=== PATIENT | male | born 1990 | race Caucasian/White ===

== ENCOUNTER 2022-05-09 15:34 | Observation (INO) | payer MEDICAID, SELFPAY ==
[2022-05-09] VITALS (8 sets, daily range): BP systolic 102–112; BP diastolic 57–76; PULSE 71–92; RESP 14–18; TEMP 36.4–36.9; O2SAT 92–99; BMI 31.7
--- NOTE | 2022-05-09 16:36 | ED_ITS ---
Documented by User: STEVE Collins 05/12/22 07:09 HPI - Abdominal Pain General: Chief Complaint: Abdominal Pain Stated Complaint: Abd pain/appendix pain Time Seen by Provider: 05/09/22 16:27 Source: patient Mode of arrival: ambulatory Limitations: no limitations History of Present Illness: Patient is a 32-year-old male presents to ED today with a complaint of abdominal pain that began at roughly 2 AM this morning. He states he was seen at [facility] and had blood work that was reportedly normal . He states he had a CT scan that showed stones and inflammation in my appendix but was discharged home on Cipro and Flagyl. He was instructed to return to the ED if pain worsened. Patient states his pain is exponentially worse now which is what is prompting his visit currently. He has had nausea and dry heaves but no active episodes of vomiting. No fevers. He vaguely also mentions he was told he had kidney stones on his CT scan. He is not complaining of flank pain, any urinary symptoms, or hematuria. MD elicited complaint: abdominal pain Pertinent past history: none Onset (ago): hour(s) Pain Consistency: constant Location: RLQ Severity: severe Quality: sharp Radiation: none Migration to: no migration Exacerbating factors: nothing Relieving factors: nothing Associated Symptoms: Reports anorexia and nausea; Denies change in bowel habits, chills, dysuria, fever(s), hematuria and vomiting Review of Systems Const: Denies: fever(s), chills, body aches, fatigue or malaise Card: Denies: chest pain Resp: Denies: dyspnea GI: Reports: abdominal pain and nausea; Denies: vomiting or change in bowel habits : Denies: flank pain, difficulty urinating, dysuria, urinary frequency, urinary urgency, urinary hesitancy or hematuria Musc: Denies: neck pain, back pain, extremity pain or joint pain Skin/Breast: Denies: rash Neuro: Denies: headache(s), numbness in extremities, weakness in extremities, sensory changes or dizziness PFS ED PFSH: Medical History (Updated 05/11/22 @ 00:00 by RUBENS Delcid) No pertinent family history Surgical History (Updated 05/19/22 @ 09:37 by Silvia Nice RN) No pertinent past surgical history Physical Exam Const: COMMON NORMALS: no acute distress, patient oriented x3, no limitations, alert and well nourished GENERAL APPEARANCE: cooperative ORIENTATION/CONSCIOUSNESS: Yes awake, Yes oriented to person, Yes oriented to place and Yes oriented to time HENMT: COMMON NORMALS: normocephalic and atraumatic HEAD & SCALP: normal to inspection, normocephalic and atraumatic Eye: SCLERA: sclerae normal Resp: COMMON NORMALS: normal respiratory effort and clear to auscultation bilaterally AUSCULTATION: clear to auscultation bilaterally Cardio: COMMON NORMALS: regular rate and regular rhythm RATE: regular rate RHYTHM: regular rhythm GI: COMMON NORMALS: No hepatosplenomegaly present and no masses INSPECTION: Yes normal to inspection AUSCULTATION: Yes normoactive bowel sounds PALPATION: Yes Tenderness to palpation present (GI) (fairly significant abdominal pain mainly to RLQ) Details: other (positive specialized appy testing), Yes Guarding due to palpation present (GI), No Rigid due to palpation and Yes No hepatosplenomegaly present : COMMON NORMALS: Yes no CVA tenderness BLADDER/KIDNEY EXAM: Yes no CVA tenderness Back/Pelvis: COMMON NORMALS: no CVA tenderness, thoracic and lumbar spine normal to inspection, no thoracic nor lumbar tenderness and thoraco-lumbar ROM normal Extremity: COMMON NORMALS: normal to inspection GENERAL: Yes normal exam except as noted Neuro: SONDRA COMA SCALE: document GCS findings [place] coma scale eye opening: Spontaneous Sondra coma scale verbal response: Orientated [place] coma scale motor response: Obey commands [place] coma scale total score: 15 COMMON NORMALS: patient oriented x3, moves all extremities, no focal motor deficits and no sensory deficits noted SENSORIUM/ORIENTATION: Yes alert, Yes oriented to person, Yes oriented to place and Yes oriented to time Skin: COMMON NORMALS: no rashes or lesions noted GENERAL SKIN EXAM: no rashes or lesions noted Course Vital Signs: Vital signs: Vital Signs Temperature 97.8 F 05/10/22 12:52 Pulse Rate 80 05/10/22 12:52 Respiratory Rate 16 05/10/22 12:52 Blood Pressure 123/75 05/10/22 12:52 Pulse Oximetry 99 05/10/22 12:52 Oxygen Delivery Me thod 05/10/22 12:52 Oxygen Flow Rate 2 05/10/22 09:40 MDM - Abdominal Pain Medical Decision Making Will repeat labs and try and get CT report/uploaded imaging from [facility] at this time. Care transferred to Miki Gupta PA-C at shift change. Lab Data 05/09/22 16:44 05/09/22 16:44 Labs/Radiology: Radiology Impressions Abdomen/Pelvis CT 05/09/22 16:57 IMPRESSION: 1. Changes consistent with appendicitis. No evidence for appendiceal rupture. 2. Incidental/nonacute findings are listed in the report. COMMENTS: Consistent with the [employer]'s Incidental Findings Committee white paper (J Am Kathi Radiol 2018): Any incidental renal lesion less than 1 cm or classified as too small to characterize, or any incidental cystic renal lesion characterized as simple-appearing, is likely benign. No follow-up imaging is recommended for these lesions per consensus recommendations based on imaging criteria. ADDENDUM: 05/09/22 0696 THIS REPORT CONTAINS FINDINGS THAT MAY BE CRITICAL TO PATIENT CARE. The findings were verbally communicated via telephone conference with Dr. Gupta at 5:43 PM GANTRY CRANE OPERATOR on 05/09/2022. The findings were acknowledged and understood. Laboratory Results WBC 21.8 10^3/uL (4.0-10.0) H 05/09/22 16:44 RBC 4.94 10^6/uL (4.1-5.3) 05/09/22 16:44 Hgb 15.1 g/dL (11.7-16.6) 05/09/22 16:44 Hct 46.0 % (42.0-52.0) 05/09/22 16:44 MCV 93.1 fl (80-94) 05/09/22 16:44 MCH 30.6 pg (28.0-34.0) 05/09/22 16:44 MCHC 32.8 g/dL (30.0-36.0) 05/09/22 16:44 RDW 12.3 % (12.1-15.1) 05/09/22 16:44 Plt Count 386 10^3/cmm (130-400) 05/09/22 16:44 MPV 10.1 fL (7.4-10.4) 05/09/22 16:44 Neut % (Auto) 90.8 % 05/09/22 16:44 Lymph % (Auto) 3.7 % 05/09/22 16:44 Geary % (Auto) 4.7 % 05/09/22 16:44 Eos % (Auto) 0.1 % 05/09/22 16:44 Baso % (Auto) 0.2 % 05/09/22 16:44 Neut # (Auto) 19.81 10^3/uL (1.8-7.7) H 05/09/22 16:44 Lymph # (Auto) 0.8 10^3/uL (0.8-4.8) 05/09/22 16:44 Geary # (Auto) 1.0 10^3/uL (0.2-0.9) H 05/09/22 16:44 Eos # (Auto) 0.0 10^3/uL (0.0-0.8) 05/09/22 16:44 Baso # (Auto) 0.1 10^3/uL (0.0-0.1) 05/09/22 16:44 Nucleated RBC % (auto) 0 % 05/09/22 16:44 Nucleated RBCs # 0.0 /100WBC 05/09/22 16:44 Sodium 137 mmol/L (136-145) 05/09/22 16:44 Potassium 3.9 mmol/L (3.5-5.1) 05/09/22 16:44 Chloride 103 mmol/L (98-107) 05/09/22 16:44 Carbon Dioxide 21 mmol/L (22-29) L 05/09/22 16:44 Anion Gap 16.9 (5-19) 05/09/22 16:44 BUN 19 mg/dL (6-20) 05/09/22 16:44 Creatinine 0.7 mg/dL (0.7-1.2) 05/09/22 16:44 GFR Calculation 129.9 mL/min (90-130) 05/09/22 16:44 Glucose 97 mg/dL (65-115) 05/09/22 16:44 Calculated Osmolality 286 mOsm/kg (285-295) 05/09/22 16:44 Calcium 9.6 mg/dL (8.5-10.5) 05/09/22 16:44 Total Bilirubin 0.5 mg/dL (0.15-1.2) 05/09/22 16:44 AST 23 U/L (0-40) 05/09/22 16:44 ALT 15 U/L (0-41) 05/09/22 16:44 Alkaline Phosphatase 75 U/L (40-130) 05/09/22 16:44 C-Reactive Protein 15.5 mg/L (0.0-4.9) H 05/09/22 16:44 Total Protein 7.5 g/dL (6.6-8.7) 05/09/22 16:44 Albumin 4.4 g/dL (3.5-5.2) 05/09/22 16:44 Globulin 3.1 g/dL (1.3-4.6) 05/09/22 16:44 Urine Color Yellow (Yellow) 05/09/22 17:00 Urine Appearance Clear (CLEAR) 05/09/22 17:00 Urine pH 5 (5-7) 05/09/22 17:00 Ur Specific [place] 1.025 (1.005-1.030) 05/09/22 17:00 Urine Protein Neg (Negative) 05/09/22 17:00 Urine Glucose (UA) Norm (Normal) 05/09/22 17:00 Urine Ketones Negative (Negative) 05/09/22 17:00 Urine Blood Neg (Negative) 05/09/22 17:00 Urine Nitrate Negative (Negative) 05/09/22 17:00 Urine Bilirubin Neg (Negative) 05/09/22 17:00 Urine Urobilinogen Norm mg/dL (Negative) 05/09/22 17:00 Ur Leukocyte Esterase Negative (Negative) 05/09/22 17:00 Discharge Plan Discharge Patient Disposition: Admitted As Inpatient Admit Provider: Td Blood Clinical Impression: Acute appendicitis Condition: Stable Discharge Diet: Regular Discharge Activity: Increase activity as tolerated Sign Out Sign Out Data: Patient Sign Out occurred on 05/09/22 at 17:09. Patient's care was discussed, and care was transferred from to STEVE Kruse. Coding Level of Care Code ED Fret Saw Operator for Chg Fwd Documented by User: STEVE Kruse 05/09/22 22:41 HPI - Abdominal Pain General: Chief Complaint: Abdominal Pain Stated Complaint: Abd pain/appendix pain Time Seen by Provider: 05/09/22 16:27 [facility] ED PFSH: Medical History (Updated 05/11/22 @ 00:00 by RUBENS Delcid) No pertinent family history Surgical History (Updated 05/19/22 @ 09:37 by Silvia Nice RN) No pertinent past surgical history Physical Exam Neuro: SONDRA COMA SCALE: document GCS findings Sondra coma scale total score: 15 Course Vital Signs: Vital signs: Vital Signs Temperature 97.8 F 05/10/22 12:52 Pulse Rate 80 05/10/22 12:52 Respiratory Rate 16 05/10/22 12:52 Blood Pressure 123/75 05/10/22 12:52 Pulse Oximetry 99 05/10/22 12:52 Oxygen Delivery Me thod 05/10/22 12:52 Oxygen Flow Rate 2 05/10/22 09:40 MDM - Abdominal Pain Medical Decision Making Will repeat labs and try and get CT report/uploaded imaging from [facility] at this time. Care transferred to Miki Gupta PA-C at shift change. I took over patient care from Shannon Santos PA-C at shift change. Patient has a white blood cell count of 21.8, CRP 15.5 and the rest of labs are unremarkable. CT abdomen pelvis shows acute appendicitis with no abscess or rupture seen. I contacted Dr. Blood general surgeon and he recommended me admitting to hospitalist and starting him on IV Rocephin and Flagyl. Dr. Blood will take patient to surgery tomorrow morning. I contacted Dr. Hernández the hospitalist on-call and told him about patient case and he accepts admission of patient to the hospital. Lab Data I reviewed the patient's lab results. 05/09/22 16:44 05/09/22 16:44 Labs/Radiology: Radiology Impressions Abdomen/Pelvis CT 05/09/22 16:57 IMPRESSION: 1. Changes consistent with appendicitis. No evidence for appendiceal rupture. 2. Incidental/nonacute findings are listed in the report. COMMENTS: Consistent with the [employer]'s Incidental Findings Committee white paper (J Am Kathi Radiol 2018): Any incidental renal lesion less than 1 cm or classified as too small to characterize, or any incidental cystic renal lesion characterized as simple-appearing, is likely benign. No follow-up imaging is recommended for these lesions per consensus recommendations based on imaging criteria. ADDENDUM: 05/09/22 9258 THIS REPORT CONTAINS FINDINGS THAT MAY BE CRITICAL TO PATIENT CARE. The findings were verbally communicated via telephone conference with Dr. Gupta at 5:43 PM GANTRY CRANE OPERATOR on 05/09/2022. The findings were acknowledged and understood. Laboratory Results WBC 21.8 10^3/uL (4.0-10.0) H 05/09/22 16:44 RBC 4.94 10^6/uL (4.1-5.3) 05/09/22 16:44 Hgb 15.1 g/dL (11.7-16.6) 05/09/22 16:44 Hct 46.0 % (42.0-52.0) 05/09/22 16:44 MCV 93.1 fl (80-94) 05/09/22 16:44 MCH 30.6 pg (28.0-34.0) 05/09/22 16:44 MCHC 32.8 g/dL (30.0-36.0) 05/09/22 16:44 RDW 12.3 % (12.1-15.1) 05/09/22 16:44 Plt Count 386 10^3/cmm (130-400) 05/09/22 16:44 MPV 10.1 fL (7.4-10.4) 05/09/22 16:44 Neut % (Auto) 90.8 % 05/09/22 16:44 Lymph % (Auto) 3.7 % 05/09/22 16:44 Geary % (Auto) 4.7 % 05/09/22 16:44 Eos % (Auto) 0.1 % 05/09/22 16:44 Baso % (Auto) 0.2 % 05/09/22 16:44 Neut # (Auto) 19.81 10^3/uL (1.8-7.7) H 05/09/22 16:44 Lymph # (Auto) 0.8 10^3/uL (0.8-4.8) 05/09/22 16:44 Geary # (Auto) 1.0 10^3/uL (0.2-0.9) H 05/09/22 16:44 Eos # (Auto) 0.0 10^3/uL (0.0-0.8) 05/09/22 16:44 Baso # (Auto) 0.1 10^3/uL (0.0-0.1) 05/09/22 16:44 Nucleated RBC % (auto) 0 % 05/09/22 16:44 Nucleated RBCs # 0.0 /100WBC 05/09/22 16:44 Sodium 137 mmol/L (136-145) 05/09/22 16:44 Potassium 3.9 mmol/L (3.5-5.1) 05/09/22 16:44 Chloride 103 mmol/L (98-107) 05/09/22 16:44 Carbon Dioxide 21 mmol/L (22-29) L 05/09/22 16:44 Anion Gap 16.9 (5-19) 05/09/22 16:44 BUN 19 mg/dL (6-20) 05/09/22 16:44 Creatinine 0.7 mg/dL (0.7-1.2) 05/09/22 16:44 GFR Calculation 129.9 mL/min (90-130) 05/09/22 16:44 Glucose 97 mg/dL (65-115) 05/09/22 16:44 Calculated Osmolality 286 mOsm/kg (285-295) 05/09/22 16:44 Calcium 9.6 mg/dL (8.5-10.5) 05/09/22 16:44 Total Bilirubin 0.5 mg/dL (0.15-1.2) 05/09/22 16:44 AST 23 U/L (0-40) 05/09/22 16:44 ALT 15 U/L (0-41) 05/09/22 16:44 Alkaline Phosphatase 75 U/L (40-130) 05/09/22 16:44 C-Reactive Protein 15.5 mg/L (0.0-4.9) H 05/09/22 16:44 Total Protein 7.5 g/dL (6.6-8.7) 05/09/22 16:44 Albumin 4.4 g/dL (3.5-5.2) 05/09/22 16:44 Globulin 3.1 g/dL (1.3-4.6) 05/09/22 16:44 Urine Color Yellow (Yellow) 05/09/22 17:00 Urine Appearance Clear (CLEAR) 05/09/22 17:00 Urine pH 5 (5-7) 05/09/22 17:00 Ur Specific [place] 1.025 (1.005-1.030) 05/09/22 17:00 Urine Protein Neg (Negative) 05/09/22 17:00 Urine Glucose (UA) Norm (Normal) 05/09/22 17:00 Urine Ketones Negative (Negative) 05/09/22 17:00 Urine Blood Neg (Negative) 05/09/22 17:00 Urine Nitrate Negative (Negative) 05/09/22 17:00 Urine Bilirubin Neg (Negative) 05/09/22 17:00 Urine Urobilinogen Norm mg/dL (Negative) 05/09/22 17:00 Ur Leukocyte Esterase Negative (Negative) 05/09/22 17:00 Discharge Plan Discharge Patient Disposition: Admitted As Inpatient Admit Provider: Td Blood Clinical Impression: Acute appendicitis Condition: Stable Discharge Diet: Regular Discharge Activity: Increase activity as tolerated Sign Out Sign Out Data: Patient Sign Out occurred on 05/09/22 at 17:09. Patient's care was discussed, and care was transferred from to STEVE Kruse. Coding Level of Care Code ED Fret Saw Operator for Sandra Thomas Documented by User: Christian Benítez MD 05/24/22 18:27 HPI - Abdominal Pain General: Chief Complaint: Abdominal Pain Stated Complaint: Abd pain/appendix pain Time Seen by Provider: 05/09/22 16:27 PFS ED PFSH: Medical History (Updated 05/11/22 @ 00:00 by RUBENS Delcid) No pertinent family history Surgical History (Updated 05/19/22 @ 09:37 by Silvia Nice RN) No pertinent past surgical history Physical Exam Neuro: SONDRA COMA SCALE: document GCS findings Sondra coma scale total score: 15 Course Vital Signs: Vital signs: Vital Signs Temperature 97.8 F 05/10/22 12:52 Pulse Rate 80 05/10/22 12:52 Respiratory Rate 16 05/10/22 12:52 Blood Pressure 123/75 05/10/22 12:52 Pulse Oximetry 99 05/10/22 12:52 Oxygen Delivery Me thod 05/10/22 12:52 Oxygen Flow Rate 2 05/10/22 09:40 MDM - Abdominal Pain Medical Decision Making Will repeat labs and try and get [facility]. Care transferred to Miki Gupta PA-C at shift change. I took over patient care from Shannon Santos PA-C at shift change. Patient has a white blood cell count of 21.8, CRP 15.5 and the rest of labs are unremarkable. CT abdomen pelvis shows acute appendicitis with no abscess or rupture seen. I edilson ontacted Dr. Blood general surgeon and he recommended me admitting to hospitalist and starting him on IV Rocephin and Flagyl. Dr. Blood will take patient to surgery tomorrow morning. I contacted Dr. Hernández the hospitalist on-call and told him about patient case and he accepts admission of patient to the hospital. I discussed this case with STEVE Collins and STEVE Kruse. I have reviewed documentation, labs, imaging. Christian Benítez MD Emergency Medicine Lab Data 05/09/22 16:44 05/09/22 16:44 Labs/Radiology: Radiology Impressions Abdomen/Pelvis CT 05/09/22 16:57 IMPRESSION: 1. Changes consistent with appendicitis. No evidence for appendiceal rupture. 2. Incidental/nonacute findings are listed in the report. COMMENTS: Consistent with the [employer]'s Incidental Findings Committee white paper (J Am Kathi Radiol 2018): Any incidental renal lesion less than 1 cm or classified as too small to characterize, or any incidental cystic renal lesion characterized as simple-appearing, is likely benign. No follow-up imaging is recommended for these lesions per consensus recommendations based on imaging criteria. ADDENDUM: 05/09/22 1745 THIS REPORT CONTAINS FINDINGS THAT MAY BE CRITICAL TO PATIENT CARE. The findings were verbally communicated via telephone conference with Dr. Gupta at 5:43 PM GANTRY CRANE OPERATOR on 05/09/2022. The findings were acknowledged and understood. Laboratory Results WBC 21.8 10^3/uL (4.0-10.0) H 05/09/22 16:44 RBC 4.94 10^6/uL (4.1-5.3) 05/09/22 16:44 Hgb 15.1 g/dL (11.7-16.6) 05/09/22 16:44 Hct 46.0 % (42.0-52.0) 05/09/22 16:44 MCV 93.1 fl (80-94) 05/09/22 16:44 MCH 30.6 pg (28.0-34.0) 05/09/22 16:44 MCHC 32.8 g/dL (30.0-36.0) 05/09/22 16:44 RDW 12.3 % (12.1-15.1) 05/09/22 16:44 Plt Count 386 10^3/cmm (130-400) 05/09/22 16:44 MPV 10.1 fL (7.4-10.4) 05/09/22 16:44 Neut % (Auto) 90.8 % 05/09/22 16:44 Lymph % (Auto) 3.7 % 05/09/22 16:44 Geary % (Auto) 4.7 % 05/09/22 16:44 Eos % (Auto) 0.1 % 05/09/22 16:44 Baso % (Auto) 0.2 % 05/09/22 16:44 Neut # (Auto) 19.81 10^3/uL (1.8-7.7) H 05/09/22 16:44 Lymph # (Auto) 0.8 10^3/uL (0.8-4.8) 05/09/22 16:44 Geary # (Auto) 1.0 10^3/uL (0.2-0.9) H 05/09/22 16:44 Eos # (Auto) 0.0 10^3/uL (0.0-0.8) 05/09/22 16:44 Baso # (Auto) 0.1 10^3/uL (0.0-0.1) 05/09/22 16:44 Nucleated RBC % (auto) 0 % 05/09/22 16:44 Nucleated RBCs # 0.0 /100WBC 05/09/22 16:44 Sodium 137 mmol/L (136-145) 05/09/22 16:44 Potassium 3.9 mmol/L (3.5-5.1) 05/09/22 16:44 Chloride 103 mmol/L (98-107) 05/09/22 16:44 Carbon Dioxide 21 mmol/L (22-29) L 05/09/22 16:44 Anion Gap 16.9 (5-19) 05/09/22 16:44 BUN 19 mg/dL (6-20) 05/09/22 16:44 Creatinine 0.7 mg/dL (0.7-1.2) 05/09/22 16:44 GFR Calculation 129.9 mL/min (90-130) 05/09/22 16:44 Glucose 97 mg/dL (65-115) 05/09/22 16:44 Calculated Osmolality 286 mOsm/kg (285-295) 05/09/22 16:44 Calcium 9.6 mg/dL (8.5-10.5) 05/09/22 16:44 Total Bilirubin 0.5 mg/dL (0.15-1.2) 05/09/22 16:44 AST 23 U/L (0-40) 05/09/22 16:44 ALT 15 U/L (0-41) 05/09/22 16:44 Alkaline Phosphatase 75 U/L (40-130) 05/09/22 16:44 C-Reactive Protein 15.5 mg/L (0.0-4.9) H 05/09/22 16:44 Total Protein 7.5 g/dL (6.6-8.7) 05/09/22 16:44 Albumin 4.4 g/dL (3.5-5.2) 05/09/22 16:44 Globulin 3.1 g/dL (1.3-4.6) 05/09/22 16:44 Urine Color Yellow (Yellow) 05/09/22 17:00 Urine Appearance Clear (CLEAR) 05/09/22 17:00 Urine pH 5 (5-7) 05/09/22 17:00 Ur Specific [place] 1.025 (1.005-1.030) 05/09/22 17:00 Urine Protein Neg (Negative) 05/09/22 17:00 Urine Glucose (UA) Norm (Normal) 05/09/22 17:00 Urine Ketones Negative (Negative) 05/09/22 17:00 Urine Blood Neg (Negative) 05/09/22 17:00 Urine Nitrate Negative (Negative) 05/09/22 17:00 Urine Bilirubin Neg (Negative) 05/09/22 17:00 Urine Urobilinogen Norm mg/dL (Negative) 05/09/22 17:00 Ur Leukocyte Esterase Negative (Negative) 05/09/22 17:00 Discharge Plan Discharge Patient Disposition: Admitted As Inpatient Admit Provider: Td Blood Clinical Impression: Acute appendicitis Condition: Stable Discharge Diet: Regular Discharge Activity: Increase activity as tolerated Sign Out Sign Out Data: Patient Sign Out occurred on 05/09/22 at 17:09. Patient's care was discussed, and care was transferred from to STEVE Kruse. Coding Level of Care Code ED Fret Saw Operator for Sandra Thomas
[2022-05-09] MEDS: morphine 4 mg/mL SDV 1 mL IVP ×2 (16:47→21:39)
[2022-05-09] MEDS: ondansetron 2 mg/ML SDV 2 mL 4 MG IVP (16:47)
[2022-05-09 16:51] LABS: Basophils # 0.1 10^3/uL (0.0-0.1); Basophils % 0.2 %; Eosinophils % 0.1 %; Hemoglobin 15.1 g/dL (11.7-16.6); Lymphocytes # 0.8 10^3/uL (0.8-4.8); Lymphocytes % 3.7 %; Mean Corpuscular HGB Conc 32.8 g/dL (30.0-36.0); Mean Corpuscular Hemoglobin 30.6 pg (28.0-34.0); Mean Corpuscular Volume 93.1 fl (80-94); Mean Platelet Volume 10.1 fL (7.4-10.4); Monocytes % 4.7 %; Neutrophils # 19.81 10^3/uL (1.8-7.7); Neutrophils % 90.8 %; Nucleated Red Blood Cells % 0 %; Platelet Count 386 10^3/cmm (130-400); Red Blood Count 4.94 10^6/uL (4.1-5.3); Red Cell Distribution Width 12.3 % (12.1-15.1); White Blood Count 21.8 10^3/uL (4.0-10.0)
--- NOTE | 2022-05-09 16:57 | CTR_ITS ---
PROCEDURE INFORMATION: Exam: CT Abdomen And Pelvis With Contrast Exam date and time: 05/09/2022 5:08 PM Age: 32 years old Clinical indication: Abdominal pain; Other: Rlq; Additional info: Rlq pain, leukocytosis, reportedly had CT scan earlier today that showed stones and TECHNIQUE: Imaging protocol: Computed tomography of the abdomen and pelvis with contrast. Sagittal and coronal reformatted images were created and reviewed. Radiation optimization: All CT scans at this facility use at least one of these dose optimization techniques: automated exposure control; mA and/or kV adjustment per patient size (includes targeted exams where dose is matched to clinical indication); or iterative reconstruction. Contrast material: OMNI 350; Contrast volume: 100 ml; Contrast route: INTRAVENOUS (IV); REPORTING DATA: Count of CT and Cardiac NM exams in prior 12 months: This patient has received 0 known CTs and 0 known cardiac nuclear medicine studies in the 12 months prior to the current study. COMPARISON: No relevant prior studies available. RADIATION DOSE METRICS: Total DLP (mGy-cm): 993.63 FINDINGS: Lungs: Dependent atelectasis in the visualized lungs. Pleural spaces: No pleural effusion. Heart: Visualized cardiac chambers are unremarkable. Liver: The liver is unremarkable. Gallbladder and bile ducts: Increased density in the gallbladder. Per report, the patient had a prior CT scan earlier on 05/09/2022, this is likely due to vicarious excretion of contrast. No gallbladder wall thickening. No biliary ductal dilatation. Pancreas: The pancreas is unremarkable. No pancreatic ductal dilatation. Spleen: Calcified granuloma in the spleen. Adrenal glands: The right and left adrenal glands are unremarkable. Kidneys and ureters: Subcentimeter hypodense foci in both right and left kidneys that are too small to characterize, however likely represent small cysts. The right and left ureters are unremarkable. Stomach and bowel: No acute abnormality in the stomach. No acute abnormality in the small bowel. No acute abnormality in the colon. Appendix: There is no evidence for an appendicolith. The appendix is dilated, measuring 1.3 cm in diameter (series 6, image 52). Thickening and enhancement of the wall of the appendix. Small amount of periappendiceal fluid. Mild periappendiceal inflammation. Intraperitoneal space: No free intraperitoneal air. No ascites. No loculated fluid collections to suggest an abscess. Vasculature: No evidence for aortic aneurysm or aortic dissection. Hepatic veins, portal veins, splenic vein, and SMV are patent. Lymph nodes: No lymphadenopathy. Urinary bladder: The bladder is incompletely filled, which can limit evaluation. No focal abnormality in the bladder however. Reproductive: Unremarkable as visualized. Bones/joints: No acute fracture. Soft tissues: The extra-abdominal soft tissues are unremarkable. CT/CT abdomen pelvis w con* [id number] IMPRESSION: 1. Changes consistent with appendicitis. No evidence for appendiceal rupture. 2. Incidental/nonacute findings are listed in the report. COMMENTS: Consistent with the [employer]'s Incidental Findings Committee white paper (J Am Kathi Radiol 2018): Any incidental renal lesion less than 1 cm or classified as too small to characterize, or any incidental cystic renal lesion characterized as simple-appearing, is likely benign. No follow-up imaging is recommended for these lesions per consensus recommendations based on imaging criteria.
[2022-05-09] MEDS: iohexol 350 mg/mL 500 mL Btl (per mL) IV (17:05)
[2022-05-09 17:16] LABS: Alanine Aminotransferase 15 U/L (0-41); Albumin Level 4.4 g/dL (3.5-5.2); Alkaline Phosphatase 75 U/L (40-130); Blood Urea Nitrogen 19 mg/dL (6-20); C Reactive Protein 15.5 mg/L (0.0-4.9); Calcium 9.6 mg/dL (8.5-10.5); Carbon Dioxide 21 mmol/L (22-29); Chloride 103 mmol/L (98-107); Globulin 3.1 g/dL (1.3-4.6); Glomerular Filtration Rate 129.9 mL/min (90-130); Glucose 97 mg/dL (65-115); Osmolality Calculated 286 mOsm/kg (285-295); Sodium 137 mmol/L (136-145); Total Bilirubin 0.5 mg/dL (0.15-1.2); Total Protein 7.5 g/dL (6.6-8.7)
[2022-05-09 17:18] LABS: Anion Gap 16.9 (5-19); Aspartate Amino Transferase 23 U/L (0-40); Potassium 3.9 mmol/L (3.5-5.1)
[2022-05-09 17:39] LABS: Add Urine Microscopic? NO; Charge for UA Resulting for Rev
[2022-05-09 17:54] LABS: Bilirubin Urine Neg (Negative); Blood Urine Neg (Negative); Glucose Urine UA Norm (Normal); Ketones Urine Negative (Negative); Leukocyte Esterase Urine Negative (Negative); Nitrate Urine Negative (Negative); Protein Urine Neg (Negative); Specific Gravity, Urine 1.025 (1.005-1.030); Urine Appearance Clear (CLEAR); Urine Color Yellow (Yellow); Urobilinogen Urine Norm (Negative); pH Urine 5 (5-7)
[2022-05-09] MEDS: HYDROmorphone 1 mg/mL INJ 1 mL IVP (17:59)
[2022-05-09] MEDS: cefTRIAXone 2,000 MG in sodium chloride 0.9% (plus) 50 ML 100 MG IV (18:15)
[2022-05-09] MEDS: sodium chloride 0.9% 500 ML 999 ML IV (18:16)
--- NOTE | 2022-05-09 18:34 | PM.HP ---
Providers/Chief Complaint Chief Complaint: Abd pain/appendix pain History of Present Illness Raza Gay is a 32 year old male with no previous medical history who presented to the ER with right lower quadrant pain, nausea, vomiting. He reports symptoms started around 230 this morning. Complained of abdominal pain and felt the need to have a bowel movement. States that he was able to move his bowels, however the pain did not improve. Pain initially was centered around his mid abdomen but migrated to his right lower quadrant. He was seen at [facility] ER earlier today, and was discharged. He reports during that stay he was provided with some morphine which did help his pain, but his abdominal pain did return when the morphine wore off. At that time he presented to the ER in [place]. In the ER he was noted to have a white count of 21.8 as well as a CRP of 15.5. CT was performed and showed acute appendicitis without rupture or abscess. General surgery was consulted, and requested patient started on Rocephin and IV fluids. They asked for hospitalist to admit the patient and they would arrange for surgical intervention tomorrow. He has no other medical problems. He is taking no medications. He does have an allergy to amoxicillin. States that he does smoke half to a pack a day. Denies any alcohol or illicit drug use. Review of Systems General: Reports: 10 or more systems reviewed and unremarkable except in HPI and below Const: Reports: fever(s), chills and change in appetite ENMT: Denies: throat pain Card: Denies: chest pain or palpitations Resp: Denies: dyspnea GI: Reports: abdominal pain, nausea and vomiting : Denies: flank pain Musc: Denies: neck pain Skin/Breast: Denies: rash Neuro: Denies: headache(s) Medications/Allergies Allergies Allergy/AdvReac Type Severity Reaction Status Date / Time amoxicillin Allergy ALGY-Swell Verified 05/09/22 16:47 Lip/Tongue/Throat PFSH Acute PFSH: Medical History No pertinent family history Surgical History No pertinent past surgical history Vitals/I&O/Wt Last Vital Signs Temp 98.0 F 05/09/22 15:46 Pulse 73 05/09/22 17:30 Resp 14 05/09/22 17:59 BP 107/63 05/09/22 17:30 Pulse Ox 99 05/09/22 17:30 O2 Del Method 05/09/22 17:30 Weight last 48 hrs Weight 209 lb Physical Exam Narrative: General: Cooperative patient in no apparent distress. Well developed. HEENT: Normocephalic, Atraumatic. External ears normal. Nasal passages patent without drainage. MMM. Heart: RRR. Resp: LCTA. No respiratory distress, no use of accessory muscles. Abd: Soft, Non-distended. Right lower quadrant tenderness, point tenderness at McBurney's. Extremities: No edema. Skin: No rash or lesions on exposed areas. Data 05/09/22 16:44 05/09/22 16:44 A&P Assessment and plan (1) Acute appendicitis: 32-year-old male with no prior medical history admitted for acute appendicitis. Admit to [facility] for inpatient monitoring. WBC count to 21, with Neutrophilia. CRP elevated to 15.5. Remainder of the labs were unremarkable. Vitals stable. CT demonstrates Acute appendicitis. General surgery is consulted. Plan to take to the OR tomorrow morning. Rocephin,Flagyl ordered per surgery. He has received one dose each while in the ER. Continue IVF's with LR @ 100ml/hr. Recheck labs in am prior to surgery. Morphine for pain control. NPO after midnight. May have sips and chips until that time if able to tolerate. Zofran for nausea. Code Status: Full IVF: LR @ 100 DVT PPx: Famotidine GI PPx: SCD's ABx: Rocephin, Flagyl Diet: NPO Disposition: Admit to [facility] Discharge plan: Home when stable. Qualifiers: Acute appendicitis type: with localized peritonitis Appendicitis abscess presence: without abscess Appendicitis gangrene presence: without gangrene Appendicitis perforation presence: without perforation Qualified Code(s): K35.30 - Acute appendicitis with localized peritonitis, without perforation or gangrene Attestations Medical Necessity Statement*: Patient will need inpatient monitoring for acute appendicitis and plan for surgical intervention Coding Level of Care Code Acute Code for Chg Fwd Straight Forward/Low MDM includes number and complexity of problems actively addressed during encounter, amount and/or complexity of data reviewed/ordered and described risk of complication, morbidity or mortality of management as documented Diagnoses Acute appendicitis K35.30 Acute appendicitis type: with localized peritonitis Appendicitis abscess presence: without abscess Appendicitis gangrene presence: without gangrene Appendicitis perforation presence: without perforation
--- NOTE | 2022-05-09 18:54 | PM.HP ---
Providers/Chief Complaint Admitting Physician: Jeremi Chief Complaint: Abd pain/appendix pain History of Present Illness Raza Gay is a 32 year old male who has had approximately about 12 to 16 hours worth of abdominal pain. The patient had some nausea with vomiting. The patient started in the epigastric region. The patient thought that he was constipated. He then thought that throwing up would help. Neither of these maneuvers helped. The patient went to an urgent care center where the patient was given pain medicine and sent home. I think the patient was given a dose of antibiotics. This helped for several hours and then the patient presented here for further care. The patient underwent a CT scan of the abdomen pelvis which was consistent with acute appendicitis. The appendix does not appear to be ruptured. There is no fluid around the appendix. There is no air around the appendix. The patient is currently healthy. Patient does not take any medications on a regular basis. The patient's had no previous abdominal operations. Review of Systems General: Reports: 10 or more systems reviewed and unremarkable except in HPI and below Medications/Allergies Allergies Allergy/AdvReac Type Severity Reaction Status Date / Time amoxicillin Allergy ALGY-Swell Verified 05/09/22 16:47 Lip/Tongue/Throat PFSH Acute PFSH: Medical History No pertinent family history Surgical History No pertinent past surgical history Vitals/I&O/Wt Last Vital Signs Temp 98.0 F 05/09/22 15:46 Pulse 73 05/09/22 17:30 Resp 14 05/09/22 17:59 BP 107/63 05/09/22 17:30 Pulse Ox 99 05/09/22 17:30 O2 Del Method 05/09/22 17:30 Weight last 48 hrs Weight 209 lb Physical Exam Narrative: General: Patient is in no acute distress. There are several cans of soda at the bedside. HEENT: No cephalic atraumatic, pupils equal round reactive to light, extraocular muscles are intact. There is no palpable facial fractures. All nasal passages are clear Neck: Free range of motion and nontender. There is no thyromegaly. There are no adenopathy Chest: Is nontender to palpation. Lungs: Clear to auscultation percussion Heart: Is regular rate and rhythm without murmurs. There is no S3 or S4. There is no rubs clicks or JVD noted. Abdomen: Soft, right lower quadrant tenderness with rebound. The patient has normal active bowel sounds. There is no hepatosplenomegaly. There is no hernia sac and appreciate Extremities: There is no obvious deformities or point tenderness suggestive of fracture. There is no clubbing cyanosis or edema Neurologic: Patient awake, alert, oriented x3, patient moves all 4 extremities without difficulty. The patient sensations intact to light touch throughout. Data 05/09/22 16:44 05/09/22 16:44 Attestation for Other Data: I personally reviewed and interpreted the following: (I reviewed all the patient's labs as well as the CT scan of the abdomen and pelvis) A&P Assessment and plan (1) Acute appendicitis: We will admit the patient to the surgery service. We will start the patient on ceftriaxone and Flagyl. The patient is allergic to penicillins. We will make sure the patient is hydrated. The patient should be n.p.o. after midnight. The risk and benefits of laparoscopic appendectomy and the plan explained to the patient. The patient seems understand these risk and benefits and would like to proceed. I have already had the patient's sign a consent form. We will plan on operative intervention first thing in the morning. Medical decision making: High Qualifiers: Acute appendicitis type: with localized peritonitis Appendicitis abscess presence: without abscess Appendicitis gangrene presence: without gangrene Appendicitis perforation presence: without perforation Qualified Code(s): K35.30 - Acute appendicitis with localized peritonitis, without perforation or gangrene Attestations Medical Necessity Statement*: Plan for operative intervention Coding Level of Care Code 22698 Diagnoses Acute appendicitis K35.30 Acute appendicitis type: with localized peritonitis Appendicitis abscess presence: without abscess Appendicitis gangrene presence: without gangrene Appendicitis perforation presence: without perforation
--- NOTE | 2022-05-09 19:20 | PC.NURSE ---
Report from Mitra, RN. Pt resting quietly. Watching TV. No needs at this time.
[2022-05-09] MEDS: metroNIDAZOLE IV 500 MG/100 ML PREMIX 100 MG IV (19:31)
[2022-05-09] MEDS: morphine 4 mg/mL SDV 1 mL 2 MG IVP (19:51)
[2022-05-09] MEDS: acetaminophen 325 mg Tablet 650 MG PO (21:27)
[2022-05-09] MEDS: ibuprofen 200 mg Tablet 600 MG PO (21:28)
[2022-05-09] MEDS: D5-NS 0.45% + KCL 20 mEq 20 MEQ/1,000 ML BAG 75 MEQ IV (21:29)
[2022-05-09] MEDS: famotidine 20 mg/2 mL INJ IVP (21:35)
[2022-05-10] VITALS (18 sets, daily range): BP systolic 105–145; BP diastolic 50–83; PULSE 61–99; RESP 14–18; TEMP 36.2–36.9; O2SAT 94–99
[2022-05-10] MEDS: morphine 4 mg/mL SDV 1 mL IVP ×4 (02:08→06:46)
[2022-05-10] MEDS: ondansetron 2 mg/ML SDV 2 mL 4 MG IVP (04:29)
[2022-05-10 05:32] LABS: Basophils % 0.4 %; Eosinophils # 0.2 10^3/uL (0.0-0.8); Eosinophils % 1.9 %; Hematocrit 39.8 % (42.0-52.0); Hemoglobin 13.7 g/dL (11.7-16.6); Lymphocytes # 2.3 10^3/uL (0.8-4.8); Lymphocytes % 22.3 %; Mean Corpuscular HGB Conc 34.4 g/dL (30.0-36.0); Mean Corpuscular Hemoglobin 31.1 pg (28.0-34.0); Mean Corpuscular Volume 90.2 fl (80-94); Mean Platelet Volume 9.8 fL (7.4-10.4); Monocytes # 0.7 10^3/uL (0.2-0.9); Monocytes % 7.1 %; Neutrophils # 6.88 10^3/uL (1.8-7.7); Nucleated Red Blood Cells % 0 %; Platelet Count 348 10^3/cmm (130-400); Red Blood Count 4.41 10^6/uL (4.1-5.3); Red Cell Distribution Width 12.1 % (12.1-15.1); White Blood Count 10.1 10^3/uL (4.0-10.0)
[2022-05-10 05:57] LABS: Alanine Aminotransferase 12 U/L (0-41); Alkaline Phosphatase 65 U/L (40-130); Anion Gap 11.3 (5-19); Aspartate Amino Transferase 14 U/L (0-40); Blood Urea Nitrogen 16 mg/dL (6-20); Calcium 8.8 mg/dL (8.5-10.5); Carbon Dioxide 26 mmol/L (22-29); Chloride 107 mmol/L (98-107); Creatinine Clr Calc Pharmacy 146.6799; Globulin 2.6 g/dL (1.3-4.6); Glomerular Filtration Rate 111.3 mL/min (90-130); Glucose 108 mg/dL (65-115); Osmolality Calculated 292 mOsm/kg (285-295); Potassium 4.3 mmol/L (3.5-5.1); Sodium 140 mmol/L (136-145); Total Bilirubin 0.5 mg/dL (0.15-1.2); Total Protein 6.6 g/dL (6.6-8.7)
--- NOTE | 2022-05-10 07:46 | ANES.PREANE2 ---
Pre-Anesthetic Assessment Height/Weight: Height 1.73 m Weight 94.801 kg Temp Pulse Resp BP Pulse Ox O2 Del Method 98.0 F 61 18 126/78 96 05/10/22 07:34 05/10/22 07:34 05/10/22 07:34 05/10/22 07:34 05/10/22 07:34 05/10/22 07:34 Preop Diagnosis: acute appy Operation Date: 05/10/22 08:20 Proposed Procedures p Laparoscopic Appendectomy(Not Applicable) - Td Blood MD Familial anesthetic complications: None Was Beta Tracy taken within 24 hours: N/A Was Clonidine taken within 24 hours: N/A Last intake: Intake Last Liquid Date 05/09/22 Last Solid Date 05/09/22 Last Solid Time 18:30 Social Tobacco and No alcohol Exam alert, oriented x 3, clear to auscultation bilaterally and regular rate & rhythm Airway Mallampati: Class II Dentition: chipped and other (Very poor dentition ( Rotten )) Comments: Comments: back R upper broken with sharp edges, caution if using scissoring technique for mouth opening Anesthetic Plan ASA status: 1 Anesthesia: General Risk of > 500 ml blood loss (7ml/kg in children): No Medications/Allergies Allergies Allergy/AdvReac Type Severity Reaction Status Date / Time amoxicillin Allergy ALGY-Swell Verified 05/09/22 16:47 Lip/Tongue/Throat Current Medications Generic Name Dose Route Start Last Admin Trade Name Freq PRN Reason Stop Dose Admin Acetaminophen 650 mg 05/09/22 18:45 05/10/22 04:23 Acetaminophen 325 Mg Tablet PO Not Given Q6H DAVID Famotidine 20 mg 05/09/22 18:45 05/09/22 21:35 Famotidine 20 Mg/2 Ml Inj IVP 20 mg Q12H DAVID Administration Potassium Chloride/Dextrose/Sod Cl 20 meq in 1,000 mls @ 75 mls/hr 05/09/22 18:45 05/09/22 21:29 D5-Ns 0.45% + Kcl 20 Meq IV 75 mls/hr .[id number] DAVID Administration Ibuprofen 600 mg 05/09/22 18:45 05/10/22 04:23 Ibuprofen 200 Mg Tablet PO Not Given Q6H DAVID Morphine Sulfate 4 mg 05/09/22 21:09 05/10/22 06:46 Morphine 4 Mg/Ml Sdv 1 Ml IVP 4 mg Q2H PRN Administration SEVERE PAIN Ondansetron HCl 4 mg 05/09/22 18:44 05/10/22 04:29 Ondansetron 2 Mg/Ml Sdv 2 Ml IVP 4 mg Q8H PRN Administration vomiting, or N/V if npo PFSH Anesthesia Medical History No pertinent family history Surgical History No pertinent past surgical history Data Anesthesia 05/10/22 05:10 05/10/22 05:10 Short CBC 05/09/22 05/10/22 Range/Units 16:44 05:10 WBC 21.8 H 10.1 H (4.0-10.0) 10^3/uL Hgb 15.1 13.7 (11.7-16.6) g/dL Hct 46.0 39.8 L (42.0-52.0) % MCV 93.1 90.2 (80-94) fl Plt Count 386 348 (130-400) 10^3/cmm Neut % (Auto) 90.8 68.0 % Neut # (Auto) 19.81 H 6.88 (1.8-7.7) 10^3/uL BMP 05/09/22 05/10/22 16:44 05:10 Sodium 137 140 Potassium 3.9 4.3 Chloride 103 107 Carbon Dioxide 21 L 26 BUN 19 16 Creatinine 0.7 0.8 Glucose 97 108 Calcium 9.6 8.8 Liver Function 05/09/22 05/10/22 Range/Units 16:44 05:10 Total Bilirubin 0.5 0.5 (0.15-1.2) mg/dL AST 23 14 (0-40) U/L ALT 15 12 (0-41) U/L Alkaline Phosphatase 75 65 (40-130) U/L Albumin 4.4 4.0 (3.5-5.2) g/dL Urine 05/09/22 Range/Units 17:00 Urine Color Yellow (Yellow) Urine Appearance Clear (CLEAR) Urine pH 5 (5-7) Ur Specific [place] 1.025 (1.005-1.030) Urine Protein Neg (Negative) Urine Glucose (UA) Norm (Normal) Urine Ketones Negative (Negative) Urine Nitrate Negative (Negative) Urine Bilirubin Neg (Negative) Ur Leukocyte Esterase Negative (Negative) Coags 05/09/22 16:44 C-Reactive Protein 15.5 H Cardiac Studies: No Data to Display
--- NOTE | 2022-05-10 08:41 | SUR.OPER ---
No antibiotic or local needed per dr. castro at 0801. HD
--- NOTE | 2022-05-10 08:56 | P.OP_ITS ---
Operative Report Date of procedure: May 10, 2022 Pre-op diagnosis: Acute appendicitis Post-op diagnosis: same Procedure done: Laparoscopic appendectomy Specimens removed/disposition: Appendix Surgeon: Td Blood Anesthesia: General Estimated blood loss: 5 cc Complications: None noted Findings: Acute, inflamed appendix. Nonruptured. Appendiceal stump was flush with the cecum. Condition: stable Disposition: PACU Brief History: This is a 32-year-old gentleman who presented with abdominal pain. The patient originally presented to an urgent care center. The patient was given antibiotics and sent home. The patient's pain returned. The patient presented to our emergency room where he underwent a CT scan of the abdomen and pelvis. This was consistent with acute appendicitis. The patient is admitted and started on antibiotics. The risk and benefits of laparoscopic appendectomy were explained to the patient. Patient seemed understand these risk and benefits and would like to proceed. Procedure: Procedure in Detail: The patient was brought to the operative room placed in supine position. After adequate general endotracheal anesthesia, the patient's abdomen was prepped and draped in usual sterile fashion. Following this a timeout was performed. The patient's identifiers as well as the goals procedure were discussed. Everyone in the room agreed. A penetrating towel clip was placed on each side of the umbilicus and lifted towards the ceiling. Now, a curvilinear incision was made at the superior aspect of the umbilicus with a skin knife. Hemostat was used to dissect down to the fascia. Then a 12 mm trocar was placed through this wound into the abdomen without difficulty. The abdomen was insufflated to 15 mmHg. The 10 mm scope was placed through this trocar. There appeared to be no evidence of intra- abdominal injury from the trocar. Now 2 standard trocars were placed a 12 mm in the left lower quadrant and a 5 mm just above the symphysis pubis. These were placed under direct vision. The patient was now placed in Trendelenburg and rolled with his left side down right side up in order for the bowels the following for the right lower quadrant. With a Formoso I was able to grasp the cecum. And then with Luly I was able to create a window in the mesoappendix. Now a HILLARY stapler was placed through this window across the base of the appendix and fired. This amputated the appendix. This was done with a blue load. Now a HILLARY stapler with a white load was used to transect the mesoappendix. The appendix was now placed in an Endobag. Suction fast food shift supervisor was used to suction out small amount of blood from the right lower quadrant. The appendiceal stump was visualized. It was flush with the cecum. There was no bleeding from the mesoappendix. A 5 mm port was removed. The Endobag was pulled out through the left lower quadrant incision along with the trocar. This came out without difficulty. There was no bleeding from the site. Now the abdomen is allowed to deflate. The final umbilical port was removed. 0 Vicryl was used in an interrupted fashion to reapproximate the fascia at both the umbilical and the left lower quadrant ports. Now using 4-0 Monocryl in a subcuticular fashion the skin was reapproximated in all 3 incisions. Dermabond was applied. The patient was now allowed to awaken and taken recovery room in stable condition. I spoke with the patient's father at length. Explained the above findings. All questions were addressed.
[2022-05-10] MEDS: fentaNYL 50 mcg/mL INJ 2mL IVP (09:06)
[2022-05-10] MEDS: meperidine 50 mg/mL INJ 12.5 MG IVP (09:10)
--- NOTE | 2022-05-10 11:19 | PC.PHAR ---
pt states he was taking an antibiotic but is unsure what he was taking. Patient fills at [facility] and is closed on Saturdays
[2022-05-10] MEDS: ibuprofen 200 mg Tablet 600 MG PO (11:29)
[2022-05-10] MEDS: metroNIDAZOLE IV 500 MG/100 ML PREMIX 100 MG IV (11:30)
[2022-05-10] MEDS: acetaminophen 325 mg Tablet 650 MG PO (11:30)
[2022-05-10] MEDS: famotidine 20 mg/2 mL INJ IVP (11:31)
[2022-05-10] MEDS: D5-NS 0.45% + KCL 20 mEq 20 MEQ/1,000 ML BAG 75 MEQ IV (11:32)
--- NOTE | 2022-05-10 13:26 | PM.PN ---
Subjective Subjective: Patient is just back from recovery room. Nursing reports no problems during the operation. He is still a little out of it, but says that his pain is controlled at this time. Medications: Reviewed: Yes Vitals/I&O/Wt Last Vital Signs Temp 97.8 F 05/10/22 12:52 Pulse 80 05/10/22 12:52 Resp 16 05/10/22 12:52 BP 123/75 05/10/22 12:52 Pulse Ox 99 05/10/22 12:52 O2 Del Method 05/10/22 12:52 O2 Flow Rate 2 05/10/22 09:40 05/09/22 05/10/22 05/10/22 22:59 06:59 14:59 Intake Total 890 / 890 1150 / 1150 Output Total 200 / 200 5 / 5 Balance 690 / 690 1145 / 1145 Weight last 48 hrs Weight 209 lb Physical Exam Narrative: General: Cooperative patient in no apparent distress. Well developed. HEENT: Normocephalic, Atraumatic. External ears normal. Nasal passages patent without drainage. MMM. Heart: RRR. Resp: LCTA. No respiratory distress, no use of accessory muscles. Abd: Soft, Non-distended. Extremities: No edema. Skin: No rash or lesions on exposed areas. Data 05/10/22 05:10 05/10/22 05:10 A&P Assessment and plan (1) Acute appendicitis: 32-year-old male with no prior medical history admitted for acute appendicitis. Continue close inpatient monitoring. Patient is postop from surgery today. Vitals are currently stable. Recheck labs in am. Morphine for pain control. Zofran for nausea. Anticipate discharge in the next 24 to 48 hours. Code Status: Full DVT PPx: Famotidine GI PPx: SCD's ABx: Rocephin, Flagyl Diet: Regular Disposition: Med/Surg Discharge plan: Home when appropriate. Qualifiers: Acute appendicitis type: with localized peritonitis Appendicitis abscess presence: without abscess Appendicitis gangrene presence: without gangrene Appendicitis perforation presence: without perforation Qualified Code(s): K35.30 - Acute appendicitis with localized peritonitis, without perforation or gangrene Attestations Medical Necessity Statement*: Patient will need inpatient monitoring for pain control, post-op observation. Anticipate D/C in 24-48hrs. Coding Level of Care Code Acute Code for Chg Fwd Straight Forward/Low MDM includes number and complexity of problems actively addressed during encounter, amount and/or complexity of data reviewed/ordered and described risk of complication, morbidity or mortality of management as documented Diagnoses Acute appendicitis K35.30 Acute appendicitis type: with localized peritonitis Appendicitis abscess presence: without abscess Appendicitis gangrene presence: without gangrene Appendicitis perforation presence: without perforation
--- NOTE | 2022-05-10 14:00 | ANE.PACU2 ---
Inpatient post-anesthesia follow up: Airway intact: Yes Vital signs: Temperature 97.8 F Pulse Rate 80 Respiratory Rate 16 Blood Pressure 123/75 Pulse Oximetry 99 Oxygen Delivery Me thod Room Air Oxygen Flow Rate 2 Fraction of Inspir ed Oxygen Hydration adequate: Yes Nausea and vomiting: No Pain level: 1 Mental status: Baseline
--- NOTE | 2022-05-10 14:48 | PM.PN ---
Subjective Subjective: This patient is doing well postoperatively. I believe this patient can be discharged home. The patient should only be given a minimal amount of narcotics. The patient's pain should be controlled with acetaminophen and ibuprofen. Vitals/I&O/Wt Last Vital Signs Temp 97.8 F 05/10/22 12:52 Pulse 80 05/10/22 12:52 Resp 16 05/10/22 12:52 BP 123/75 05/10/22 12:52 Pulse Ox 99 05/10/22 12:52 O2 Del Method 05/10/22 12:52 O2 Flow Rate 2 05/10/22 09:40 05/09/22 05/10/22 05/10/22 22:59 06:59 14:59 Intake Total 890 / 890 1150 / 1150 Output Total 200 / 200 5 / 5 Balance 690 / 690 1145 / 1145 Weight last 48 hrs Weight 209 lb Data 05/10/22 05:10 05/10/22 05:10 Attestations Medical Necessity Statement*: The patient is ready for discharge Coding Level of Care Code Acute Code for Chg Martha
--- NOTE | 2022-05-10 15:30 | P.DS_ITS ---
Discharge Providers Date of Admission: 05/09/22 18:44 Date of Discharge: May 11, 2022 Attending Provider at Admission: Td Blood MD Attending Provider at Discharge: Td Blood MD Diagnoses at Discharge Discharge Diagnosis (1) Acute appendicitis: Details from hospital stay: Acute appendicitis, status post laparoscopic appendectomy Status: Resolved Qualifiers: Acute appendicitis type: with localized peritonitis Appendicitis abscess presence: without abscess Appendicitis gangrene presence: without gangrene Appendicitis perforation presence: without perforation Qualified Code (s): K35.30 - Acute appendicitis with localized peritonitis, without perforation or gangrene Reason for Visit Reason for Visit: Abd pain/appendix pain Hospital Course Hospital Course The patient was diagnosed with acute appendicitis. The patient was given IV antibiotics. The patient underwent a laparoscopic appendectomy. Postoperatively, the patient did well. Patient's pain is under good control. The patient is ready for discharge. Physical Exam Narrative: The patient's abdominal exam was consistent with acute appendicitis with right lower quadrant pain tenderness and rebound Discharge Data Studies Completed and Pending Completed Studies During Hospitalization Category Date Time Status CT abdomen pelvis w con* [id number] Stat Cat Scan 05/09/22 16:57 Completed Pending at discharge Category Date Time Status Pathology: Surgical [PTH] Routine Pth 05/10/22 09:03 Ordered Radiology Impressions Abdomen/Pelvis CT 05/09/22 16:57 IMPRESSION: 1. Changes consistent with appendicitis. No evidence for appendiceal rupture. 2. Incidental/nonacute findings are listed in the report. COMMENTS: Consistent with the [employer] [place] [employer]'s Incidental Findings Committee white paper (J Am Kathi Radiol 2018): Any incidental renal lesion less than 1 cm or classified as too small to characterize, or any incidental cystic renal lesion characterized as simple-appearing, is likely benign. No follow-up imaging is recommended for these lesions per consensus recommendations based on imaging criteria. ADDENDUM: 05/09/22 1745 THIS REPORT CONTAINS FINDINGS THAT MAY BE CRITICAL TO PATIENT CARE. The findings were verbally communicated via telephone conference with Dr. Gupta at 5:43 PM BIOINFORMATICS TECHNICIAN on 05/09/2022. The findings were acknowledged and understood. Laboratory Results WBC 10.1 10^3/uL (4.0-10.0) H 05/10/22 05:10 RBC 4.41 10^6/uL (4.1-5.3) 05/10/22 05:10 Hgb 13.7 g/dL (11.7-16.6) 05/10/22 05:10 Hct 39.8 % (42.0-52.0) L 05/10/22 05:10 MCV 90.2 fl (80-94) 05/10/22 05:10 MCH 31.1 pg (28.0-34.0) 05/10/22 05:10 MCHC 34.4 g/dL (30.0-36.0) 05/10/22 05:10 RDW 12.1 % (12.1-15.1) 05/10/22 05:10 Plt Count 348 10^3/cmm (130-400) 05/10/22 05:10 MPV 9.8 fL (7.4-10.4) 05/10/22 05:10 Neut % (Auto) 68.0 % 05/10/22 05:10 Lymph % (Auto) 22.3 % 05/10/22 05:10 Pettis % (Auto) 7.1 % 05/10/22 05:10 Eos % (Auto) 1.9 % 05/10/22 05:10 Baso % (Auto) 0.4 % 05/10/22 05:10 Neut # (Auto) 6.88 10^3/uL (1.8-7.7) 05/10/22 05:10 Lymph # (Auto) 2.3 10^3/uL (0.8-4.8) 05/10/22 05:10 Pettis # (Auto) 0.7 10^3/uL (0.2-0.9) 05/10/22 05:10 Eos # (Auto) 0.2 10^3/uL (0.0-0.8) 05/10/22 05:10 Baso # (Auto) 0.0 10^3/uL (0.0-0.1) 05/10/22 05:10 Nucleated RBC % (auto) 0 % 05/10/22 05:10 Nucleated RBCs # 0.0 /100WBC 05/10/22 05:10 Sodium 140 mmol/L (136-145) 05/10/22 05:10 Potassium 4.3 mmol/L (3.5-5.1) 05/10/22 05:10 Chloride 107 mmol/L (98-107) 05/10/22 05:10 Carbon Dioxide 26 mmol/L (22-29) 05/10/22 05:10 Anion Gap 11.3 (5-19) 05/10/22 05:10 BUN 16 mg/dL (6-20) 05/10/22 05:10 Creatinine 0.8 mg/dL (0.7-1.2) 05/10/22 05:10 GFR Calculation 111.3 mL/min (90-130) 05/10/22 05:10 Glucose 108 mg/dL (65-115) 05/10/22 05:10 Calculated Osmolality 292 mOsm/kg (285-295) 05/10/22 05:10 Calcium 8.8 mg/dL (8.5-10.5) 05/10/22 05:10 Total Bilirubin 0.5 mg/dL (0.15-1.2) 05/10/22 05:10 AST 14 U/L (0-40) 05/10/22 05:10 ALT 12 U/L (0-41) 05/10/22 05:10 Alkaline Phosphatase 65 U/L (40-130) 05/10/22 05:10 C-Reactive Protein 15.5 mg/L (0.0-4.9) H 05/09/22 16:44 Total Protein 6.6 g/dL (6.6-8.7) 05/10/22 05:10 Albumin 4.0 g/dL (3.5-5.2) 05/10/22 05:10 Globulin 2.6 g/dL (1.3-4.6) 05/10/22 05:10 Urine Color Yellow (Yellow) 05/09/22 17:00 Urine Appearance Clear (CLEAR) 05/09/22 17:00 Urine pH 5 (5-7) 05/09/22 17:00 Ur Specific [place] 1.025 (1.005-1.030) 05/09/22 17:00 Urine Protein Neg (Negative) 05/09/22 17:00 Urine Glucose (UA) Norm (Normal) 05/09/22 17:00 Urine Ketones Negative (Negative) 05/09/22 17:00 Urine Blood Neg (Negative) 05/09/22 17:00 Urine Nitrate Negative (Negative) 05/09/22 17:00 Urine Bilirubin Neg (Negative) 05/09/22 17:00 Urine Urobilinogen Norm mg/dL (Negative) 05/09/22 17:00 Ur Leukocyte Esterase Negative (Negative) 05/09/22 17:00 Vitals Last Vital Signs Temp 97.8 F 05/10/22 12:52 Pulse 80 05/10/22 12:52 Resp 16 05/10/22 12:52 BP 123/75 05/10/22 12:52 Pulse Ox 99 05/10/22 12:52 O2 Del Method 05/10/22 12:52 O2 Flow Rate 2 05/10/22 09:40 Discharge Plan Discharge Patient Disposition: Home Condition: Stable Prescriptions: New acetaminophen 325 mg Tablet 650 mg PO Q6H 14 Days Qty: 50 0RF ibuprofen 200 mg Tablet 600 mg PO Q6H 10 Days Qty: 40 0RF oxycodone 5 mg capsule 5 mg PO Q6H PRN (Reason: pain) Qty: 7 0RF Discharge Orders: Discharge Order (Routine); Ordered 05/10/22 Ordered By: Td Blood Referrals: Moises Oneal DO [Physician] - 7-10 days (wound check) Discharge Diet: Regular Discharge Activity: Increase activity as tolerated Patient Instructions: Acetaminophen (By mouth), Ibuprofen (By mouth), Oxycodone/Acetaminophen (By mouth), Abdominal Pain (DC), Laparoscopic Appendectomy (DC), Opioid Safety, Post Anesthesia Care, Pain Management Activity Restrictions/Additional Instructions: No heavy lifting for a week. (Nothing greater than 10 pounds) May take a shower. Do not soak the wound. The wound can be soaked after 5 days. Tylenol/ibuprofen for pain. After 7 days, the patient can return to work without restrictions. Discharge Attestations Time Spent in Discharge Care*: less than 30 min Quality Metrics Clinical Quality Measures [ No reported AMI, CVA or VTE this stay] Coding Level of Care Code 95859 Diagnoses Acute appendicitis K35.30 Acute appendicitis type: with localized peritonitis Appendicitis abscess presence: without abscess Appendicitis gangrene presence: without gangrene Appendicitis perforation presence: without perforation
== END 2022-05-10 15:34 | disposition home or self-care (01) ==
LOC: ER 20:33 → MEDSURG 20:35
PROVIDERS: Family Medicine; Physician Assistant; Admitting Provider Surgery Surgical Critical Care; Emergency Provider Physician Assistant; Visit Provider Surgery Surgical Critical Care
PROC: 0DTJ4ZZ Resection of Appendix, Percutaneous Endoscopic Approach (ICD-10-PCS; CPT 44970; principal; 2022-05-10 08:00)
DX: K35.33 Acute appendicitis with perforation, localized peritonitis, and gangrene, with abscess (principal)
CPT/HCPCS: 44970; 12345; 36415; 74177; 80053; 81003; 85025; 86140; 88304; 96365; 96367; 96375; 96376; 99223; 99238; 99285; G0378; J0696; J1100; J1170; J1200; J2175; J2250; J2270; J2405; J2704; J3010; J3490; J7030; J7040; Q9967

== ENCOUNTER 2023-07-26 10:31 | Emergency (ER) | payer MEDICAID, SELFPAY ==
[2023-07-26 11:12] VITALS: BP 115/70; PULSE 68; TEMP 36.4; O2SAT 99; BMI 28.8
--- NOTE | 2023-07-26 11:33 | CTR_ITS ---
PROCEDURE INFORMATION: Exam: CT Head Without Contrast Exam date and time: 07/26/2023 11:41 AM Age: 33 years old Clinical indication: Pain; Headache not specified; Additional info: Left-sided headache new onset TECHNIQUE: Imaging protocol: Computed tomography of the head without contrast. Axial, coronal and sagittal reformatted images were created and reviewed. Radiation optimization: All CT scans at this facility use at least one of these dose optimization techniques: automated exposure control; mA and/or kV adjustment per patient size (includes targeted exams where dose is matched to clinical indication); or iterative reconstruction. COMPARISON: No relevant prior studies available. RADIATION DOSE METRICS: Total DLP (mGy-cm): 1130.08 FINDINGS: Brain: No CT evidence of acute intracranial hemorrhage or acute territorial infarction. No significant mass effect or midline shift. Basal cisterns patent. Cerebral ventricles: Normal in size and configuration. Paranasal sinuses: Polypoid mucosal thickening of the ethmoid air cells and paranasal sinuses. No air-fluid levels. Mastoid air cells: Grossly unremarkable. Bones: Unremarkable. No acute fracture. Soft tissues: Grossly unremarkable. CT/CT head wo con* [id number] IMPRESSION: 1. No CT evidence of acute intracranial pathology. 2. Additional findings, as above.
--- NOTE | 2023-07-26 11:36 | ED_ITS ---
HPI - Headache General: Chief Complaint: Headache Stated Complaint: left side face pressure Time Seen by Provider: 07/26/23 11:22 History of Present Illness: This patient makes his way to the emergency department today because of a left- sided headache. He came on gradually some time approximately last weekend according to collaboration of history between patient and spouse. 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 He is also taken ibuprofen and acetaminophen which dulls the headache somewhat. He states it is throbbing at times and his skin is tender to touch. He denies any significant headache history. He takes Suboxone but otherwise no other new medications. He denies falls or head injury. He denies cough cold recent illness. His children at home are well without any upper respiratory illnesses etc. He has not had any travel. He denies stressors. He denies any other contributing factors to this current headache. There is no additional symptoms such as numbness weakness etc. He has been nauseated when the pain reaches maximum but has not had any vomiting etc. MD elicited complaint: headache Onset description: gradually Location: left and parietal Quality & Timing: throbbing and dull Exacerbating factors: movement of head/neck Associated symptoms: Reports no associated symptoms; Deny confusion, fever(s), nausea, rash or vomiting Review of Systems Const: Denies: fever(s) or chills Eyes: Denies: change in vision ENMT: Denies: throat pain, odynophagia, nasal discharge or nasal congestion Card: Denies: palpitations or irregular heart rhythm Resp: Denies: productive cough or non-productive cough GI: Denies: nausea, vomiting or diarrhea : Denies: flank pain, difficulty urinating or dysuria Musc: Denies: back pain, extremity pain or extremity swelling Skin/Breast: Denies: rash Neuro: Reports: headache(s); Denies: numbness in extremities, weakness in extremities, dizziness, vertigo or confusion Psych: Denies: anxiety or depression PFSH ED PFSH: Medical History No pertinent family history Surgical History No pertinent past surgical history Physical Exam Narrative: EXAM NARRATIVE: Sitting in a darkened room with sunglasses on. He is alert and responds appropriately to examiner's questions. After removing sunglasses he makes direct eye contact. Const: COMMON NORMALS: no acute distress, average body habitus, patient oriented x3, healthy appearing and alert GENERAL APPEARANCE: cooperative HENMT: COMMON NORMALS: normocephalic, atraumatic, EAC's normal, TM's normal bilaterally, Normal external nose present, Normal nasal mucous membranes and turbinates present and moist oral mucous membranes HEAD & SCALP: normocephalic, atraumatic and scalp tenderness (Predominantly on the left. No skin rashes.); no Temporal artery tenderness present NOSE: Normal external nose present and Normal nasal mucous membranes and turbinates present EXTERNAL AUDITORY CANAL: EAC's normal TYMPANIC MEMBRANE: TM's normal bilaterally Eye: COMMON NORMALS: Equal, round and reactive pupils present, EOMs intact bilaterally and conjunctivae normal CONJUNCTIVA: Yes conjunctivae normal PUPIL: Yes Equal, round and reactive pupils present Neck/C-Spine: COMMON NORMALS: full ROM, no lymphadenopathy, supple and no JVD OTHER: Palpation along the superior border the trapezius bilaterally reveals areas of tenderness and trigger points on the left superior trapezius extending up into the left paracervical region. His range of motion is not restricted but is exacerbates his symptoms with head turning left Chest: COMMONS NORMALS: normal inspection of the chest and normal palpation of entire chest wall Resp: COMMON NORMALS: normal respiratory effort and No retractions Cardio: COMMON NORMALS: no JVD, regular rate and regular rhythm RATE: regular rate RHYTHM: regular rhythm GI: COMMON NORMALS: Normal to inspection, nondistended, normoactive bowel sounds present, Soft to palpation and non-tender PALPATION: Yes Soft to palpation : COMMON NORMALS: Yes no CVA tenderness BLADDER/KIDNEY EXAM: Yes no CVA tenderness Back/Pelvis: COMMON NORMALS: no CVA tenderness, thoracic and lumbar spine normal to inspection, no thoracic nor lumbar tenderness and thoraco-lumbar ROM normal Extremity: COMMON NORMALS: normal to inspection, full ROM and capillary refill normal Neuro: COMMON NORMALS: patient oriented x3, moves all extremities, no focal motor deficits and no sensory deficits noted SENSORIUM/ORIENTATION: Yes alert CRANIAL NERVES: Yes CN normal except as noted GAIT: Yes Normal gait present Psych: COMMON NORMALS: mental status grossly normal Skin: COMMON NORMALS: no rashes or lesions noted, no wounds and turgor normal GENERAL SKIN EXAM: no rashes or lesions noted and turgor normal Course Reevaluation(s): Reevaluation #1: Patient was reexamined. He states he feels little bit sleepier but still has some of the same headache symptoms. No other new or worrisome findings. Re viewed findings of noncontrast CT scan without any evidence of obvious intracranial hemorrhage, other pathology discernible on CT scan. He has no findings that would suggest other more worrisome secondary headache at this time other than likely muscle contraction contribution given his clinical findings. Will give an additional dose of analgesics and reevaluate. He is anxious to leave the emergency department. Time: 13:15 Reevaluation #2: Patient is improved. Again more likely given his current clinical scenario a muscle contraction related headache and does not suggest a serious etiology at this time. Patient desires to be discharged. We discussed risks and benefits of additional testing and/or continued observation and return precautions as well. Time: 13:35 Vital Signs: Vital signs: Vital Signs Temperature 97.5 F L 07/26/23 11:12 Pulse Rate 68 07/26/23 11:12 Blood Pressure 115/70 07/26/23 11:12 Pulse Oximetry 99 07/26/23 11:12 Oxygen Delivery Me thod Room Air 07/26/23 11:12 MDM - Headache Medical Decision Making Patient presents to the emergency department approximate 1 week history of left- sided headache that is throbbing in nature at times but dull at other times. He states it is a gradual onset he states that he also has some left upper back and shoulder pain. He states that he associates skin tenderness with the headache. There was no history of rash significant prior headache history head trauma etc. Clinical examination was notable for trapezius tenderness paracervical tenderness and exacerbation of symptoms with rotation to the left. Nonfocal neurologic exam. Imaging was obtained due to the paucity of prior headaches. Simultaneously he was given migraine type cocktail with Reglan and diphenhydramine. This was followed with ketorolac. CT noncontrast CT scan did reveal no evidence of intracranial hemorrhage or other acute pathology. The patient had improvement in his symptoms. Discussed additional testing to include not limited to but include lumbar puncture etc. he declined additional testing at this time given his response and reassuring CT scan. Unlikely to be a serious secondary headache given his current clinical picture and scenario. We did review return precautions in detail. He was appreciative of care. He Lab Data I reviewed the patient's lab results. Radiology Impressions Head CT 07/26/23 11:[address]: 1[address] evidence of acute intracranial pathology. 2. Additional findings, as above. All radiology interpretation(s) finalized by discharge Discharge Plan Discharge Patient Disposition: Home Clinical Impression: Headache Qualifiers: Headache type: unspecified Headache chronicity pattern: unspecified pattern Intractability: not intractable Qualified Code(s): R51.9 - Headache, unspecified Condition: Stable Prescriptions: New tizanidine 4 mg tablet 4 mg PO BID PRN (Reason: muscle spasticity) Qty: 14 0RF No Action polyethylene glycol 3350 17 gram/dose powder 17 g PO DAILY PRN (Reason: Constipation) Suboxone 8-2 mg film 1 film sublingual TID Discharge Orders: Discharge ED (Routine); Ordered 07/26/23 Ordered By: Sudhakar Rodas Discharge Diet: Usual diet Discharge Activity: Increase activity as tolerated Patient Instructions: Opioid Safety, Pain Management Activity Restrictions/Additional Instructions: As we discussed while you are in the emergency department your imaging and other clinical findings did not suggest a serious cause of your headache. We think it is likely related to muscle contraction and tension of the muscles in your neck and scalp. If your symptoms not continue to improve with the medication and ice massage to this area or worsen at any time or new symptoms develop you should return to the emergency department immediately for reevaluation of your headache. The muscle relaxant we have prescribed we recommend initially taking it at night to see how it affects you with regard to concentration etc. Coding Level of Care Code ED Business Analysis Specialist for Sandra Thomas
[2023-07-26] MEDS: sodium chloride 0.9% 1,000 ML 999 ML IV (12:19)
[2023-07-26] MEDS: diphenhydrAMINE 50 mg/mL SDV 1mL 25 MG IVP (12:20)
[2023-07-26] MEDS: metoclopramide 5 mg/mL SDV 2 mL 10 MG IVP (12:20)
[2023-07-26 12:46] VITALS: PULSE 52; O2SAT 96
[2023-07-26 13:16] VITALS: PULSE 56; O2SAT 98
[2023-07-26] MEDS: ketorolac 30 mg/mL INJ 15 MG IVP (13:28)
[2023-07-26 14:02] VITALS: BP 113/74; PULSE 69; RESP 16; O2SAT 94
== END 2023-07-26 14:05 | disposition home or self-care (01) ==
PROVIDERS: Emergency Provider Emergency Medicine
DX: R51.9 Headache, unspecified (principal)
CPT/HCPCS: 70450; 96361; 96374; 96375; 99285; J1200; J1885; J2765; J7030